=== PATIENT | female | born 1965 | race Caucasian/White ===

== ENCOUNTER 2019-11-18 08:48 | Day surgery (SDC) | payer MEDICAID ==
[2019-11-18] VITALS (7 sets, daily range): BP systolic 109–127; BP diastolic 52–82
[~2019-11-18] VITALS: Ht 167.6 cm; Wt 74.8 kg
[~2019-11-18 08:48] MED LIST: SODIUM CHLORIDE 0.9% 1000ML 1,000 ML IV ONE
[2019-11-18] MEDS ORDERED: [UNRECOGNIZED DRUG - CODE] PO (10:35)
[2019-11-18] MEDS ORDERED: RIVA1TAB PO (10:35)
[2019-11-18] MEDS ORDERED: LEVO25TA54 PO (10:35)
[2019-11-18] MEDS ORDERED: PROPOFOL 10 MG/ML 20ML VIAL IV ONE ×2 (10:54→10:55)
[2019-11-18] MEDS ORDERED: MIDAZOLAM HCL 1 MG/ML 2ML VIAL ONE ×2 (10:54→11:14)
[2019-11-18] MEDS ORDERED: FENTANYL CITRATE PF 50 MCG/1 ML 2ML VIAL ONE (11:26)
== END 2019-11-18 12:15 | disposition home or self-care (01) ==
LOC: DAH 08:48 → ENDO 08:48
PROVIDERS: ATTEND Internal Medicine Gastroenterology
DX: R19.7 Diarrhea, unspecified (principal); K57.30 Diverticulosis of large intestine without perforation or abscess without bleeding; K29.70 Gastritis, unspecified, without bleeding; E03.9 Hypothyroidism, unspecified; K21.9 Gastro-esophageal reflux disease without esophagitis; Z91.040 Latex allergy status; Z88.8 Allergy status to other drugs, medicaments and biological substances; Z88.3 Allergy status to other anti-infective agents; Z91.011 Allergy to milk products; Z91.018 Allergy to other foods; Z86.711 Personal history of pulmonary embolism; Z79.01 Long term (current) use of anticoagulants; Z79.899 Other long term (current) drug therapy; Z98.890 Other specified postprocedural states; Z80.0 Family history of malignant neoplasm of digestive organs
CPT/HCPCS: 43239; 45380; A4215; A4221; A4222; A4223; A4606; A4620; A4657; A4663; J2250 ×2; J2704 ×2; J3010; J7030

== ENCOUNTER → 2020-06-11 | Outpatient (CLI) | payer MEDICAID ==
[~2020-06-11] MED LIST changes: +LEVO25TA54 PO; +RIVA1TAB PO; -SODIUM CHLORIDE 0.9% 1000ML 1,000 ML IV ONE; +[UNRECOGNIZED DRUG - CODE] PO
== END | disposition home or self-care (01) ==
LOC: SHCH 11:29
PROVIDERS: ATTEND Internal Medicine Cardiovascular Disease
DX: I34.9 Nonrheumatic mitral valve disorder, unspecified (principal)
CPT/HCPCS: 93306; 93356

== ENCOUNTER 2022-07-11 14:38 | Emergency (ER) | payer MEDICAID ==
[~2022-07-11] VITALS: Ht 167.6 cm; Wt 77.1 kg
[~2022-07-11 14:38] MED LIST changes: +LAMO5TB.3 PO; -[UNRECOGNIZED DRUG - CODE] PO
[2022-07-11 15:59] LABS: BASOPHILS % (AUTO) 0.2 % (0.0-5.0); EOSINOPHILS % (AUTO) 0.2 % (0.0-8.0); HEMATOCRIT 45.4 % (36-48); MEAN CORPUSCULAR HEMOGLOBIN 29.1 pg (27.0-33.0); MEAN CORPUSCULAR HGB CONC 33.5 g/dL (32.0-36.0); MEAN CORPUSCULAR VOLUME 86.8 fL (79-99); MONOCYTES % (AUTO) 4.9 % (3.0-13.0); NEUTROPHILS % (AUTO) 83.2 % (40.0-77.0); PLATELET COUNT (AUTO) 259 K/uL (130-400); RED BLOOD CELL COUNT(AUTO) 5.23 MIL/uL (4.00-5.50); RED CELL DISTRIBUTION WIDTH 13.2 % (11.0-15.5); WHITE BLOOD COUNT (AUTO) 8.9 K/uL (4.8-10.8)
[2022-07-11 16:14] LABS: CREATININE 1.1 mg/dL (0.5-1.5); POTASSIUM 3.9 mmol/L (3.5-5.1); TOTAL PROTEIN, SERUM 7.8 g/dL (6.0-8.3)
[2022-07-11] MEDS ORDERED: LEVETIRACETAM 500 MG/5 ML SD VIAL IV SCH (17:00)
[2022-07-11] MEDS ORDERED: LEVE250T PO (17:46)
[2022-07-11 17:47] VITALS: BP 140/84
== END 2022-07-11 18:15 | disposition home or self-care (01) ==
LOC: EDH 14:38
DX: R56.9 Unspecified convulsions (principal); Z91.040 Latex allergy status; Z88.8 Allergy status to other drugs, medicaments and biological substances
CPT/HCPCS: 99285; 96365; 71045; 80053; 85025; 36415; 93005; J1953